=== PATIENT | male | born 1990 | race Caucasian/White ===

== ENCOUNTER 2017-05-17 21:56 | Emergency (ER) | payer OTHER ==
[~2017-05-17] VITALS: Ht 188 cm; Wt 131.8 kg
[2017-05-17 22:04] VITALS: BP 134/82; PULSE 121; RESP 20; O2SAT 96
--- NOTE | 2017-05-18 00:50 | ED.REPORT ---
HPI-Extremity Problem Lower Date of Service May 18, 2017 ED Provider: Som Blair MD Pt is an otherwise healthy 26 year old male who presents to the ED complaining of left knee laceration onset 20:00 while playing football today. He c/o associated left knee pain. He denies any other symptoms. Pt reports that he is able to ambulate. The pt states that he did not notice the injury until later in the day and he believes that it is from a cleat. He reports the presence of foreign bodies in his wound that he describes as "pellets" that are applied to artificial turf. The pt's last tetanus shot was in 2014. Nursing Notes Stated Complaint: GASH IN LEFT KNEE Chief Complaint: Extremity Trauma Allergies: Coded Allergies: No Known Allergies (Unverified , 05/17/17) General Time Seen by MD: 00:29 Chief Complaint Knee injury left Hx Obtained From: Patient Arrived By: Walk-in Onset Occurred: 5 - 8 hours ago Symptom Duration: Since onset Location: : Knee left Severity: Current: Moderate Severity: Maximum: Moderate Immunizations: Tetanus up to date Recent Healthcare: Recent doctor visit Similar Sx Previous: No Past Medical History Past Medical History Denies - Healthy Denies: Congestive heart failure, Diabetes mellitus, Hypertension Past Surgical History Left leg (2x) Smoking History Unknown if Ever Smoker Social History Semi-pro football player Alcohol Use: "Social" Drug Use: THC Other Social History: Good social support Ambulatory Status Independent Review of Systems Constitutional: Denies: Fever Musculoskeletal: Reports: Joint pain, Denies: Extremity pain, Joint swelling Complete sys rev & neg: except as marked. Physical Exam Initial Vital Signs Vital Signs (First) Date Time Temp Pulse Resp B/P Pulse Ox O2 Delivery O2 Flow Rate FiO2 05/17/17 22:04 37.2 121 20 134/82 96 Room Air Initial VS: Reviewed Head / Eyes: Atraumatic, Normocephalic Neck: Supple, Full range of motion Abdomen / GI: Soft Upper Extremities: Vascular intact, Neuro intact Skin: Warm, Dry, No cyanosis Neurologic: Alert, Oriented, Nonfocal Psychiatric: Mood/affect normal, Behavior normal Lower Extremity / Pelvis / MS: Neurologic intact, Vascular intact 2cm laceration on the anterior of the left knee over the patella, lateral to the midline. Ankle / Foot: Atraumatic, Full range of motion, Neurologic intact, Vascular intact General/Constitutional: Awake, Alert, Cooperative Interpretation & Diagnostics X-Ray Interpretation Xray Interpretation: No body abnormalities. No foreign body. X-Ray Ordered: Knee left Interpretation / Wet Read by: Wet read ED physician Procedures Laceration Management Time: :29 Procedure Performed by: ED physician Consent / Setup / Site Prep: Consent from patient, Time-out performed, Hand hygiene observed, Stand sterile technique Location of Wound: Anterior of the left knee over the patella, lateral to the midline Wound Length: 2 cm Local Anesthesia: Lidocaine w epi 1% Wound Preparation: Betadine, Normal saline Debridement: None Irrigation: Copious Foreign Body Explore / Removal: Explored for foreign body, Removed multiple (Removed small number of foreign bodies that he describes as "pellets" that are applied on artifical turf) Repair Skin: ___ O (4), Nylon # Sutures - Skin: 3 Closure Layers: 1 Suture Technique: Simple Post-Procedure / Complications: Antibiotic oint applied, Dressing applied, No complications, Condition improved, Tolerated procedure well, Patient stable Re-Eval/Medical Decision Med Decision/Clinical Course Tachycardia noted, had just been playing football and was nervous around needles. Source of Hx: Old records Re-Evaluation/Progress : Time of Eval: 01:28 Re-Evaluation/Progress Note: Pt rechecked. Performed laceration management with pt's consent. Informed pt of plan for discharge. Pt understands and agrees with plan for discharge. F/U instructions and RTER warnings given. All questions addressed. Counseled Regarding: Diagnosis, Need for follow-up, When/why to return to ED Discharge & Departure Impression: Primary Impression: Laceration Disposition: Home Discharge Condition All VS Reviewed: Yes Condition: Stable Patient Instructions: Acute Wound Care (ED) Additional Instructions: Today we treated a wound on the left knee. Cleaned, foreign bodies were irrigated and removed and sutures were placed. Return emergency department in 3 days for a wound check and in 8-10 days for removal of stitches. Because of the contamination in the wound we will start oral antibiotics, take cephalexin 500 mg 4 times a day for 5 days. Keep the wound covered with antibiotic ointment and a bandage. Return to the ED if you have redness, swelling or discharge from wound. Referrals: Sanchez Beltran MD (PCP) Scribe Attestation Portions of this note were transcribed by Lisa Ennis. I, Dr. Blair personally performed the history, physical exam and medical decision-making; I reviewed and confirmed the accuracy of the information in the transcribed note. Signed by : Shellie Crews, 05/18/17 and 02:50. copies to: Sanchez Beltran MD, Donald L MD May 18, 2017 00:50 Lisa Watkins May 18, 2017 01:19
[2017-05-18] MEDS ORDERED: Bacitracin Ointment Packet TOPICAL ONE (01:45)
[2017-05-18] MEDS ORDERED: _Cephalexin 500 mg Capsule PO SCH (01:50)
--- NOTE | 2017-05-18 07:42 | DRSVH ---
PROCEDURE: X-RAY LEFT KNEE, THREE VIEWS ([id number]) INDICATIONS: Lac over patella ? FB TECHNIQUE: 3 views of the knee were acquired. COMPARISON: None. FINDINGS: Bones: No fractures or dislocations. No suspicious bony lesions. Soft tissues: No joint effusion. No suspicious soft tissue calcifications. No radiodense foreign b edgardo. IMPRESSION: No visualized acute fracture or dislocation. However, if clinical concern and/or pain pe rsist, short interval imaging followup in 7-10 days is recommended, as occult injury cannot be defini tively excluded. Dictated by: Mary Jane Tamez M.D. on 05/18/2017 at 7:39 Approved by: Mary Jane Tamez M.D. on 05/18/2017 at 7:40
== END 2017-05-18 02:30 | disposition home or self-care (01) ==
LOC: SED 21:56
DX: S81.012A Laceration without foreign body, left knee, initial encounter (principal); X58.XXXA Exposure to other specified factors, initial encounter; Y93.61 Activity, american tackle football; Y92.9 Unspecified place or not applicable; Y99.9 Unspecified external cause status